=== PATIENT | female | born 1970 | race Caucasian/White ===

== ENCOUNTER 2016-12-23 22:47 | Inpatient (IN) ==
[2016-12-23] MEDS ORDERED: Nitroglycerin 0.4 MG TAB.SUBL SL ONE (23:22)
--- NOTE | 2016-12-23 23:23 | Emergency Department Note ---
Disposition Clinical Impression: Unstable angina, Anterior ST segment depression, Hypokalemia, Renal insufficiency Disposition: Admitted As Inpatient Condition: Fair Time of Disposition: 00:53 Chest Pain HPI - General Chief Complaint: ED Chest Pain Stated Complaint: Chest pain// stents before Time Seen by Provider: 12/23/16 23:05 Source: patient Mode of arrival: ambulatory Limitations: no limitations Vital Signs Reviewed: Yes Nursing Notes Reviewed: Yes - History of Present Illness HPI Narrative: 46-year-old female history of hypertension, hyperlipidemia, pack per day smoker , CAD status post 1 RIA to proximal LAD 09/2015 presents to the ED with left scapular pain. She reports at 1999 she was laying at rest watching TV when she experience sharp sternal chest pain radiating through to her left back. Pain currently only located in the left scapula. She got diaphoretic, short of breath and nauseated. This feels exactly like her heart attack in the past which required one stent. She immediately took a baby aspirin and a total of 2 nitro without any relief. She continues to smoke. Reports taking her aspirin and Plavix as directed. Dr. Hunter's are cardiologists. Denies any recent illness, fever, recent travel, surgery or active cancer. No recent trauma. Severity scale (1-10): 10 - Related Data Home Medications Medication Instructions Recorded Confirmed Simvastatin [Zocor] 20 mg PO HS 09/21/15 12/24/16 Aspirin 81 mg PO DAILY 10/12/15 12/24/16 Fenofibrate [Lofibra] 160 mg PO DAILY 10/12/15 12/24/16 Hydrochlorothiazide 25 mg PO DAILY 10/12/15 12/24/16 Lisinopril [Zestril] 20 mg PO DAILY 10/12/15 12/24/16 Metoprolol [Lopressor] 25 mg PO BID 10/12/15 12/24/16 Previous Rx's Medication Instructions Recorded Clopidogrel Bisulfate [Plavix] 75 mg PO DAILY #30 tablet 10/12/15 Famotidine [Pepcid] 20 mg PO BID #60 tablet 10/12/15 Allergies Allergy/AdvReac Type Severity Reaction Status Date / Time No Known Allergies Allergy Verified 09/21/15 15:22 All systems ED: reviewed and negative except as stated. Constitutional: Denies: fever, chills Cardiovascular: Denies: chest pain, palpitations, dyspnea on exertion Respiratory: Denies: cough, dyspnea Gastrointestinal: Reports: nausea. Denies: abdominal pain, vomiting, diarrhea Musculoskeletal: Reports: back pain Integumentary: Denies: rash, abrasion Neurological: Denies: headache Chest Pain PMH - Past Medical History Medical history: Reports: hyperlipidemia, hypertension Surgical history: Reports: no surgical history Psychiatric history: Reports: no psych history JACQUARD LACE WEAVER history: Reports: no JACQUARD LACE WEAVER history - Social History Smoking Status: Current every day smoker Alcohol use: Reports: none Drug use: Reports: none Physical Exam - General Limitations: no limitations General appearance: alert, in distress (uncomfortable) - Head Head exam: atraumatic, normocephalic, normal inspection - Eye Eye exam: Present: normal appearance, PERRL, EOMI - ENT ENT exam: normal exam, normal oropharynx, mucous membranes moist - Neck Neck exam: Present: normal inspection, full ROM, trachea midline - Chest Chest inspection: Present: normal inspection, symmetric chest wall rise. Absent : tenderness - Respiratory Respiratory exam: Present: normal lung sounds bilaterally. Absent: respiratory distress, wheezes, stridor - Cardiovascular Cardiovascular exam: Present: regular rate, normal rhythm, normal heart sounds - Expanded Cardiovascular Exam Peripheral pulses: 2+: radial (R), radial (L) - Abdominal Exam Abdominal exam: Present: soft, Non-Tender, normal bowel sounds. Absent: tenderness, distention, guarding, rebound, rigidity - Extremities Exam Extremities exam: Present: normal inspection, full ROM, normal capillary refill. Absent: tenderness, pedal edema, calf tenderness - Expanded Lower Extremity Exam Neurovascular/Tendon exam: Present: normal capillary refill. Absent: pulse deficit - Back Exam Back exam: Present: normal inspection, full ROM. Absent: tenderness - Neurological Exam Neurological exam: Present: alert, oriented X3 - Psychiatric Psychiatric exam: Present: normal affect, anxious - Skin Skin exam: Present: warm, intact, normal color, diaphoresis Course Course Narrative: 46-year-old female history of ED presents the knee with left scapular pain. This is similar to the pain she experienced prior to heart catheterization that led to a drug eluting stent placed 10/12/15. Heart catheterization revealed 80% stenosis in the proximal LAD. Patient appears very uncomfortable diaphoretic and nauseated. No chest discomfort on palpation. Heart is regular rate and rhythm. Lungs are clear to auscultation. Radial pulses are symmetrical bilaterally. EKG reveals ST depression and T-wave inversion extending to V4 from prior EKG. we had chest pain workup. She took a baby aspirin earlier this morning as she normally does as well as 1 baby aspirin prior to arrival here. She will likely need admission. Nitro for pain and Zofran for nausea. Patient is in agreement with plan. - Reevaluation(s) Reevaluation #1: Chest x-ray shows cardiomegaly and bronchitic changes. Troponin is negative. Her creatinine is elevated at 1.4. Potassium is low 3.1. Will replete with 40 mEq PO. Will give her some IV fluids. Nitro did not help with pain. Morphine ordered for discomfort. Her vitals remain stable. Will admit for rule out ACS. Her HEART score is 5. Patient is in agreement with plan. Hospitalist paged for admission. Impression is unstable angina R/O ACS with ST depression in anterior leads with hypokalemia and renal insufficiency. Time: 00:49 - Consultations Consultation #1: Spoke with on-call hospitalist fanny Lake to admit for unstable angina R/O ACS and ST depressions. No further orders at this time Time: 01:20 Vital Signs Temperature 98.2 F 12/23/16 22:52 Pulse Rate 95 12/23/16 22:52 Respiratory Rate 16 12/23/16 22:52 Blood Pressure 137/82 12/23/16 22:52 O2 Sat by Pulse Oximetry 97 12/23/16 22:52 Temperature 98.2 F 12/23/16 22:52 Pulse Rate 62 12/24/16 00:30 Respiratory Rate 16 12/24/16 00:30 Blood Pressure 113/78 12/24/16 00:30 O2 Sat by Pulse Oximetry 95 12/24/16 00:30 Oxygen Delivery Oxygen Delivery Room Air Chest Pain - Differential Diagnosis Likely: unstable angina pectoris, atypical chest pain - Medical Records Medical records reviewed: Yes I reviewed the patient's medical records. - Lab Data Lab results reviewed: Yes I reviewed the patient's lab results. Result diagrams: 12/23/16 23:30 12/23/16 23:30 Lab Results 12/23/16 12/23/16 12/23/16 Range/Units 23:30 23:30 23:30 WBC 9.8 (4.3-11.1) K/mcL RBC 4.39 (3.82-4.97) M/mcL Hgb 13.1 (11.5-15.4) g/dL Hct 37.8 (35.3-44.9) % MCV 86.1 (83.0-100.0) fL MCH 29.8 (28.0-33.3) pg MCHC 34.7 (31.6-35.5) g/dL RDW 12.2 (11.5-14.5) % Plt Count 431 H (140-400) K/mcL MPV 10.1 (9.4-12.4) fL Immature Gran % 0.8 (0-4) % Seg Neutrophils % 58.6 % Lymphocytes % 29.3 % Monocytes % 8.9 % Eosinophils % 1.5 % Basophils % 0.9 % Neutrophils # 5.7 (1.6-8.9) K/mcL Lymphocytes # 2.9 (0.6-4.6) K/mcL Monocytes # 0.9 (0.0-1.3) K/mcL Eosinophils # 0.2 (0.0-0.6) K/mcL Basophils # 0.1 (0.0-0.2) K/mcL Sodium 139 (136-145) mEq/L Potassium 3.1 L (3.5-4.5) mEq/L Chloride 103 (98-109) mEq/L Carbon Dioxide 26 (19-29) mEq/L BUN 13 (7-20) mg/dL Creatinine 1.41 H (0.57-1.11) mg/dL Est GFR ( Amer) 49 L (> 60) Est GFR (Non-Af Amer) 41 L (> 60) BUN/Creatinine Ratio 9 (6-26) Glucose 112 H (70-99) mg/dL Calculated Osmolality 289 (280-300) Calcium 10.0 (8.6-10.8) mg/dL Troponin I 0.00 (0-0.03) ng/mL - Radiology Data Radiology results reviewed: Yes I reviewed the patient's radiology results. Chest X-Ray 12/23/16 23:18 IMPRESSION: Borderline cardiomegaly and mild bronchitic changes. D/ / Carl Restrepo MD / Carl Restrepo MD Interpreting Provider: Carl Restrepo MD - EKG Data EKG attestation: Yes I reviewed and interpreted this EKG. EKG results narrative: EKG performed 2305 normal sinus rhythm 88 bpm, ST depressions and anterior septal leads with inverted T waves V1-V4, this is slightly change from prior EKG 10/12/[address] changes with T-wave inversion in V1-V2. Intervals are within normal limits NH interval 160 QRS 95 QT QTC 334 379. Heart Score - Score History: Moderately Suspicious EKG: Significant ST-Depression Age: Less than 45 Risk Factors: Equal/Greater than 3 risk factor or history of atherosclerotic disease Troponin: Less than normal limit HEART Score Total: 5 Attestation Statement - Attestation Attestation: I, James Noel MD, personally performed a history and physical exam of the patient and discussed their management with the resident. I reviewed the resident's note and agree with the documented findings, medical decision making , and plan of care. 46-year-old female presents to the emergency department with a complaint of upper substernal chest pain radiating straight through to the back which started about 8 PM this evening while watching television. Some mild shortness of breath. Also nausea and vomiting associated with the pain. Patient has a prior history of coronary artery disease with a coronary artery stent. On examination patient is a well-developed well-nourished female in no acute distress. She is alert and oriented 3. There is no cyanosis or diaphoresis. Chest is nontender to palpation. Breath sounds are clear and equal bilaterally. Heart regular rate and rhythm. Abdomen soft and nontender with normal bowel sounds. Labs reviewed. Troponin normal. EKG shows some anterior T-wave inversion and slight ST depression which is increased from previous EKG. Chest x-ray shows cardiomegaly and bronchitic changes. The hospitalist, Dr. Nix, was consulted and accepted admission of the patient.
[2016-12-23] MEDS ORDERED: Ondansetron 4 MG/2 ML VIAL IV ONE (23:30)
[2016-12-23 23:45] LABS: Basophils # 0.1 K/mcL (0.0-0.2); Basophils % 0.9 %; Eosinophils # 0.2 K/mcL (0.0-0.6); Eosinophils % 1.5 %; Hematocrit 37.8 % (35.3-44.9); Hemoglobin 13.1 g/dL (11.5-15.4); Immature Granulocytes % 0.8 % (0-4); Lymphocytes # 2.9 K/mcL (0.6-4.6); Lymphocytes % 29.3 %; Mean Corpuscular HGB Conc 34.7 g/dL (31.6-35.5); Mean Corpuscular Hemoglobin 29.8 pg (28.0-33.3); Mean Corpuscular Volume 86.1 fL (83.0-100.0); Mean Platelet Volume 10.1 fL (9.4-12.4); Monocytes # 0.9 K/mcL (0.0-1.3); Monocytes % 8.9 %; Neutrophils # 5.7 K/mcL (1.6-8.9); Platelet Count 431 K/mcL (140-400); Red Blood Count 4.39 M/mcL (3.82-4.97); Red Cell Distribution Width 12.2 % (11.5-14.5); Segmented Neutrophils % 58.6 %
[2016-12-23 23:57] LABS: Potassium 3.1 mEq/L (3.5-4.5)
[2016-12-24] MEDS ORDERED: 0.9 % Sodium Chloride 1,000 ML IVC ONE (00:29)
[2016-12-24] MEDS ORDERED: *HR* Morphine 2 MG/ML SYRINGE IVP ONE (00:42)
[2016-12-24] MEDS ORDERED: *HR* Morphine 2 MG/ML SYRINGE IV ONE (01:36)
[2016-12-24] MEDS ORDERED: *HR* Promethazine 25 MG/ML VIAL IVP PRN (02:14)
[2016-12-24] MEDS ORDERED: Naloxone 0.4 MG/ML INJ IVP PRN (02:14)
[2016-12-24] MEDS ORDERED: Heparin 25,000 UNIT/500 ML D5W 25,000 UNIT/500 ML MLS IVC SCH ×2 (02:15→02:30)
[2016-12-24] MEDS ORDERED: Nitroglycerin 0.4 MG TAB.SUBL SL PRN (02:21)
[2016-12-24] MEDS ORDERED: *HR* Heparin 5,000 UNIT/ML VIAL IVP ONE (02:28)
[2016-12-24] MEDS ORDERED: *HR* Heparin 5,000 UNIT/ML VIAL IVP PRN ×2 (02:28)
[2016-12-24] MEDS ORDERED: *HR* Heparin 5,000 UNIT/ML VIAL ONE (02:45)
[2016-12-24 03:15] LABS: Hematocrit 35.2 % (35.3-44.9); Hemoglobin 12.2 g/dL (11.5-15.4); Mean Corpuscular HGB Conc 34.7 g/dL (31.6-35.5); Mean Corpuscular Hemoglobin 30.2 pg (28.0-33.3); Mean Corpuscular Volume 87.1 fL (83.0-100.0); Mean Platelet Volume 10.5 fL (9.4-12.4); Platelet Count 359 K/mcL (140-400); Red Blood Count 4.04 M/mcL (3.82-4.97); Red Cell Distribution Width 12.3 % (11.5-14.5)
[2016-12-24 03:32] LABS: Calcium 9.6 mg/dL (8.6-10.8); Chol/HDL Ratio 5.4 (0-4.9); Potassium 3.5 mEq/L (3.5-4.5)
[2016-12-24 03:38] LABS: INR 1.1; Prothrombin Time 11.9 Seconds (9.4-12.1)
[2016-12-24 03:41] LABS: Activated Partial Thrombo Time 28.8 Seconds (26.0-36.0)
--- NOTE | 2016-12-24 03:54 | Internal Med History&Physical ---
<RobertoIsakMaryan Ann - Last Filed: 12/24/16 05:11> Date of Encounter: 12/24/16 Time of Encounter: 03:24 Assessment and Plan (1) Unstable angina Current visit: Yes Status: Acute EKG with ST depression and T wave inversion V1-V4, change from 16EKG trop 0.00 ddimer 352 will trend troponin start heparin drip UDS urine test nitroglycerine morphine phenergan supportive care (2) NATASHA (acute kidney injury) Current visit: Yes Status: Acute CR 1.41 elevated from baseline GFR 49 IVF avoid nephrotoxins recheck (3) Anterior ST segment depression Current visit: Yes Status: Acute (4) Hypokalemia Current visit: Yes Status: Acute 3.1 unable to tolerate PO K in ER will replace IV recheck (5) History of [place] (myocardial infarction) Current visit: Yes Status: Chronic (6) History of coronary artery stent placement Current visit: Yes Status: Chronic (7) History of placement of stent in LAD coronary artery Current visit: Yes Status: Chronic (8) CAD (coronary artery disease) Current visit: Yes Status: Acute Qualifiers: Coronary Disease-Associated Artery/Lesion type: [place] artery [place] vs. transplanted heart: [place] heart Associated angina: angina presence unspecified Qualified Code(s): I25.10 - Atherosclerotic heart disease of [place] coronary artery without angina pectoris (9) HTN (hypertension) Current visit: Yes Status: Acute Qualifiers: Hypertension type: essential hypertension Qualified Code(s): I10 - Essential (primary) hypertension (10) Tobacco abuse Current visit: Yes Status: Acute Internal Medicine - H&P: HPI Chief complaint: chest pain Admitted From: Home Plans for Post Hospital Care: Home History of present illness: Ms. Crowell is a 46 year old female c/o chest pain. PMHx [place],LAD stenting, HTN, HLD with c/o substernal chest pain, with radiation to the thoracic back. Pt states pain started earlier today and is a severe 8/10 pain that has been constant, without relief with nitroglycin and moderate relief with morphine. Pain is constant, not relieved with rest or worsened with activity and has been associated with nausea and vomiting. She states has been immediately vomiting nonbloody/nonbilious emesis anytime she is trying to take anything PO. She states these symptoms are the same as when she had her prior [place]. Pt states she is currently still smoking a little less then 1ppd. Pt denies headache, change in vision, hearing, SOB, cough hemoptysis, abdominal pain, numbness/tingling. Past Med Surg Social Fam HX - Past Medical History Medical history: hyperlipidemia, hypertension, myocardial infarction Psychiatric history: no psych history - Past Surgical History Surgical History: angioplasty/stent - Social History Smoking Status: Current every day smoker Packs per day: 0.5, Smokeless Tobacco Status: No Alcohol use: none Drug use: none - Family History Mother Living Status: Still Living Hx Family Cardiac Disorders: Yes (Multiple [place]'s, Cardiac Stents) Hx Family Medical Disorders: Yes (High cholestrol, HTN) Internal Medicine - H&P: Meds Simvastatin [Zocor] 20 mg PO HS 09/21/15 [History] Aspirin 81 mg PO DAILY 10/12/15 [History] Clopidogrel Bisulfate [Plavix] 75 mg PO DAILY #30 tablet 10/12/15 [Rx] Famotidine [Pepcid] 20 mg PO BID #60 tablet 10/12/15 [Rx] Fenofibrate [Lofibra] 160 mg PO DAILY 10/12/15 [History] Hydrochlorothiazide 25 mg PO DAILY 10/12/15 [History] Lisinopril [Zestril] 20 mg PO DAILY 10/12/15 [History] Metoprolol [Lopressor] 25 mg PO BID 10/12/15 [History] Allergies No Known Allergies Allergy (Verified 09/21/15 15:22) All Systems PM: A 10-system review of systems was performed and is negative for pertinent findings except as documented above in the HPI. - Constitutional Constitutional: as per HPI - EENT Eyes: as per HPI - Cardiovascular Cardiovascular ROS IM: as per HPI - Respiratory Respiratory: as per HPI - Gastrointestinal Gastrointestinal: as per HPI - Genitourinary Genitourinary: as per HPI - Musculoskeletal Musculoskeletal ROS IM: as per HPI - Integumentary Integumentary IM: as per HPI - Neurological Neurological ROS: as per HPI - Psychiatric Psychiatric: as per HPI - Endocrine Endocrine IM: as per HPI - Hematologic/Lymphatic Hematologic/Lymphatic: as per HPI - Constitutional Vitals: Temp Pulse Resp BP Pulse Ox 97.7 F 62 18 123/75 96 12/24/16 02:17 12/24/16 02:17 12/24/16 02:17 12/24/16 02:17 12/24/16 02:17 General appearance: Present: A&O X 3, no acute distress - Head Head exam: Present: atraumatic, normocephalic - Eye Eye exam: Present: EOMI, PERRL, conjuntiva pink, sclera anicteric Pupils: Present: PERRL - ENT ENT exam: Present: mucous membranes moist - Neck Neck exam general surgery: Present: supple, trachea midline. Absent: lymphadenopathy - Respiratory Respiratory exam: Present: CTAB. Absent: accessory muscle use, rales, rhonchi, wheezes - Cardiovascular Cardiovascular exam: Present: RRR, +S1, +S2. Absent: diastolic murmur, gallop, rubs, systolic murmur - GI/Abdominal GI/Abdominal exam: Present: normal bowel sounds, soft, no peritoneal signs. Absent: distended, tenderness - Extremities Exam Extremities exam: Present: warm, radial pulses palpable and symetrical. Absent : calf tenderness, cyanotic, pedal edema - Back Exam Back exam: Absent: tenderness, vertebral tenderness - Neurological Exam Neurological exam: Present: CN II-XII intact, oriented X3, no focal deficits. Absent: pronater drift, facial droop, speech deficit - Skin Skin exam: Present: diaphoretic, intact Internal Med - H&P Results - Labs CBC & Chem 7: 12/24/16 02:30 12/24/16 02:30 Labs: Short CBC 12/24/16 Range/Units 02:30 WBC 12.3 H (4.3-11.1) K/mcL Hgb 12.2 (11.5-15.4) g/dL Hct 35.2 L (35.3-44.9) % Plt Count 359 (140-400) K/mcL <Heron Nix - Last Filed: 12/24/16 06:22> Date of Encounter: 12/24/16 Internal Medicine - H&P: HPI History of present illness: Ms. Crowell is a 46 year old female All Systems PM: A 10-system review of systems was performed and is negative for pertinent findings except as documented above in the HPI. - Constitutional Vitals: Temp Pulse Resp BP Pulse Ox 97.7 F 62 18 123/75 96 12/24/16 02:17 12/24/16 02:17 12/24/16 02:17 12/24/16 02:17 12/24/16 03:15 Internal Med - H&P Results - Labs CBC & Chem 7: 12/24/16 02:30 12/24/16 02:30 - Attending Attestation I examined this patient and my medical decision-making was reviewed with the TRANSFER AND LINE UP WORKER/PA/Advanced Practice Nurse/Resident Physician. I agree with the documented findings, disposition and treatment plan as described except to the extent set forth below. Agree with Dr. Mejia. Continue with heparin drip. Cardio consult.
[2016-12-24] MEDS ORDERED: Nicotine 21 MG PATCH.TD24 TD PRN (04:19)
[2016-12-24] MEDS: 0.9 % Sodium Chloride 1,000 ML IVC SCH ×3 (05:19→20:20)
[2016-12-24] MEDS: *HR* Morphine 2 MG/ML SYRINGE IVP PRN ×3 (05:31→14:04)
[2016-12-24 05:40] LABS: Amphetamine Screen,Urine Negative ng/mL (Cutoff=1000); Barbiturate Screen,Urine Negative ng/mL (Cutoff=200); Benzodiazepines Screen,Urine Negative ng/mL (Cutoff=200); Cannabinoid Screen,Urine Negative ng/mL (Cutoff = 50); Cocaine Screen,Urine Negative ng/mL (Cutoff= 300); Opiate Screen,Urine Positive ng/mL (Cutoff=300); Phencyclidine Screen,Urine Negative ng/mL (Cutoff=25)
--- NOTE | 2016-12-24 07:58 | Internal Med Progress Note ---
<Dallas Copeland - Last Filed: 12/24/16 08:14> Date of Encounter: 12/24/16 Time of Encounter: 07:55 - Assessment and plan (1) Unstable angina Current Visit: Yes Status: Acute Assessment and plan: Patient admitted with substernal chest pressure with pain radiating to her posterior thorax. Pain scale 8/10, improved from 10/10. N/V with po meds including nitro. EKG Echocardiogram from September 2015 demonstrates LVEF of 60%, normal left ventricular size and systolic function. Evidence of mild diastolic dysfunction of the left ventricle. Normal left atrial size. Normal right ventricular size and function. Normal right atrial size. Mild pulmonic regurgitation. Estimated RVSP 15. no pulmonary hypertension - RIA placed in proximal LAD, Patient on Plavix and ASA at home and says she takes them daily without missing doses. Contributing factors: Daily smoker, CAD, previous AL, drug-eluting stent 1 year ago, obesity, hypertension CHIRAG score: 5 (26% 14 day all cause mortality) 3+ CAD risk factors, Known CAD with previous 80% stenosis, ASA use, Severe angina, EKG ST changes Plan: - On Heparin Drip - Morphine - subling. Nitro. - Protonix - NS at 100ml/hr - Cardiology consulted and is aware of patient. (2) HTN (hypertension) Current Visit: Yes Status: Acute Assessment and plan: History of hypertension, blood pressure is currently stable. Home antihypertensive medications include HCTZ 25 mg by mouth daily lisinopril 20 mg by mouth daily Lopressor 25 mg by mouth twice a day. Plan: - Blood pressure stable hold antihypertensives until after determination of intervention. Qualifiers: Hypertension type: essential hypertension Qualified Code(s): I10 - Essential (primary) hypertension (3) NATASHA (acute kidney injury) Current Visit: Yes Status: Acute Assessment and plan: Patient admitted with acute kidney injury with a creatinine of 1.41 currently on normal saline with improving renal function. Likely secondary to nausea and vomiting. Plan: - Continue IV normal saline as patient has nausea and vomiting and is nothing by mouth. (4) Hypokalemia Current Visit: Yes Status: Acute Assessment and plan: Hypokalemia likely secondary to nausea and vomiting, volume loss. Admitting potassium 3.1, current potassium 3.5 after IV potassium replacement. Plan: - Continue to monitor electrolytes. Corrected as necessary. (5) History of [place] (myocardial infarction) Current Visit: Yes Status: Chronic Assessment and plan: History of AL with drug-eluting stent placement in proximal LAD. As described above. (6) History of coronary artery stent placement Current Visit: Yes Status: Chronic Assessment and plan: History of drug-eluting stent in proximal LAD. Continue aspirin and Plavix. (7) CAD (coronary artery disease) Current Visit: Yes Status: Acute Assessment and plan: History of single vessel severe disease of 80% blockage of the proximal LAD. Previous AL. Plan: - Continue simvastatin 20 mg by mouth at bedtime - Continue ASA - Continue beta [place]. Qualifiers: Coronary Disease-Associated Artery/Lesion type: [place] artery [place] vs. transplanted heart: [place] heart Associated angina: angina presence unspecified Qualified Code(s): I25.10 - Atherosclerotic heart disease of [place] coronary artery without angina pectoris (8) Tobacco abuse Current Visit: Yes Status: Acute Assessment and plan: Current every day smoker. Patient on nicotine patch daily. (9) DVT prophylaxis Current Visit: Yes Status: Acute Assessment and plan: Currently on heparin drip. - Subjective Interval history: Ms. Crowell 46F seen and examined patient bedside this morning. She continues to have chest pain but has improved. She describes it as chest pressure substernally radiating to her back with a pain scale of 8 out of 10. She describes this pain similar to her previous heart attack one year ago. She continues to have nausea and vomiting with by mouth medications and says that her mouth is dry. Denies any fevers, chills, blurry vision, palpitations, diarrhea or constipation. She has waiting to be evaluated by cardiology this morning. Denies any further questions. - Constitutional Vitals: Temp Pulse Resp BP Pulse Ox 98.0 F 86 16 103/68 96 12/24/16 06:56 12/24/16 06:56 12/24/16 06:56 12/24/16 06:56 12/24/16 06:56 General appearance: Present: cooperative, mild distress, A&O X 3 - Head Head exam: Present: atraumatic, normocephalic - Eye Eye exam: Present: PERRL, conjuntiva pink, sclera anicteric Pupils: Present: PERRL - ENT ENT exam: Present: mucous membranes dry - Neck Neck exam general surgery: Present: supple, trachea midline - Respiratory Respiratory exam: Present: CTAB. Absent: accessory muscle use, rales, rhonchi, wheezes - Cardiovascular Cardiovascular exam: Present: RRR, +S1, +S2. Absent: diastolic murmur, gallop, rubs, systolic murmur - GI/Abdominal GI/Abdominal exam: Present: normal bowel sounds, soft, no peritoneal signs. Absent: distended, tenderness - Extremities Exam Extremities exam: Present: warm, radial pulses palpable and symetrical. Absent : calf tenderness, cyanotic, pedal edema - Neurological Exam Neurological exam: Present: alert, oriented X3, no focal deficits, strengths equal and symetr throughout. Absent: pronater drift, facial droop, speech deficit - Psychiatric Psychiatric exam: Present: normal affect, normal mood - Skin Skin exam: Present: dry, intact Internal Medicine: Result - Labs CBC & Chem 7: 12/24/16 02:30 12/24/16 02:30 - ABG Interpretation ABG results: PT/INR, D-dimer PT 11.9 Seconds (9.4-12.1) 12/24/16 03:22 Consult Discharge Plan - Plan Referrals: Mika Pickett, INDUSTRIAL PAINTER [Primary Care Provider] - <Fredrick Varma H - Last Filed: 12/24/16 10:45> Date of Encounter: 12/24/16 - Constitutional Vitals: Temp Pulse Resp BP Pulse Ox 98.0 F 86 16 103/68 96 12/24/16 06:56 12/24/16 06:56 12/24/16 06:56 12/24/16 06:56 12/24/16 09:14 Internal Medicine: Result - Labs CBC & Chem 7: 12/24/16 02:30 12/24/16 02:30 Labs: Cardiac Enzymes 12/24/16 Range/Units 09:04 Troponin I 0.00 (0-0.03) ng/mL - ABG Interpretation ABG results: PT/INR, D-dimer PT 11.9 Seconds (9.4-12.1) 12/24/16 03:22 - Attending Attestation the patient has left back pain and nausea just when she had her last AL. Cardiology recommendations appreciated I examined this patient and my medical decision-making was reviewed with the ASBESTOS COVERER/PA/Advanced Practice Nurse/Resident Physician. I agree with the documented findings, disposition and treatment plan as described except to the extent set forth below.
[2016-12-24] MEDS: Pantoprazole 40 MG VIAL IVP SCH (09:06)
[2016-12-24] MEDS ORDERED: Nitroglycerin 1 INCH/GM PACKET TP PRN (10:32)
[2016-12-24] MEDS ORDERED: Fluconazole 100 MG TABLET PO ONE (10:55)
--- NOTE | 2016-12-24 11:21 | Cardiology Consult Note ---
<Curtis Treadwell - Last Filed: 12/24/16 15:20> Date of Encounter: 12/24/16 Time of Encounter: 11:15 Assessment and Plan (1) Back pain Current Visit: Yes Status: Acute Per Cardiology: Presents with midscapular back pain. Reports similar to what she had prior to previous stent. Reports also had midsternal chest tightness, now resolved. Back pain improved from 07/03 to 3/10. ECG with baseline abnormal ST changes and current ECG comparable-- reviewed with Dr. Padron. Trops - x 3. Consider noncardiac causes of back pain Qualifiers: Back pain location: thoracic back pain Chronicity: unspecified Back pain laterality: bilateral Qualified Code(s): M54.6 - Pain in thoracic spine (2) CAD (coronary artery disease) Current Visit: Yes Status: Chronic Per Cardiology: Last heart catheterization September 2015 which showed single vessel severe disease and status post drug-eluting stent to proximal LAD 80% stenosis, other arteries angiographically free of disease. Home medications have been resumed by primary service of aspirin, Plavix, statin, beta garland, GISELL inhibitor-- we' ll discontinue GISELL inhibitor for now due to NATASHA. Previous echo September 2015 showed EF 60%, mild diastolic dysfunction, mild NV. A lengthy discussion with patient and regarding further ischemic evaluation at this point agreeable for limited echo for reevaluation of EF. Pending echo results and clinical course will evaluate in the morning potential need for further ischemic evaluation, anticipate potential stress test. Agree with discontinuation of IV heparin drip. Qualifiers: Coronary Disease-Associated Artery/Lesion type: [place] artery [place] vs. transplanted heart: [place] heart Associated angina: angina presence unspecified Qualified Code(s): I25.10 - Atherosclerotic heart disease of [place] coronary artery without angina pectoris (3) NATASHA (acute kidney injury) Current Visit: Yes Status: Acute Per Cardiology: Present with acute kidney injury. Again will hold GISELL inhibitor for now. Continue to monitor closely. Further evaluation per primary service. (4) Tobacco abuse Current Visit: Yes Status: Chronic Per Cardiology: Unfortunately continues to smoke one pack per day. Smoking cessation discussed for 5 minutes. Discussion w patient/family: The assessment and plan as outlined above was discussed with the patient and/or family members who expressed understanding and agreement. All questions were answered. Thank you for involving us in the care of your patient. Please call with any questions. History of Present Illness Consult date: 12/24/16 Requesting physician: Fredrick Varma Consult reason: CAD, Concerns for anginma equivalent Chief complaint: Back Pain History of present illness: Ms. Crowell is a 46 year old female with a relevant past medical history of hypertension, hyperlipidemia, nicotine abuse, and CAD. History of left heart catheterization September 2015 with drug-eluting stent placement to LAD due to abnormal ECG finding an outpatient setting. Patient unfortunately continues to smoke less than one pack per day and has been smoking about one pack per day for the past 20 years. She also reports strong family history of CAD with mom with stenting at age 38 and reports father passed weight age 57 of suspected heart attack. Cardiology consult for angina equivalent symptoms with known history of CAD. Patient reports her normal state of health up until yesterday. She denies any recent fever, chills, nausea, vomiting, diarrhea, infectious process. Denies any active bleeding or blood loss. Denies any dizziness, syncope, falls. Denies any acute trauma. She reports yesterday while at rest developed onset of mid scapular back pain she reports about a 10 out of 10 with some accompanying midsternal chest heaviness. She reports symptoms similar to about one year ago prior to suspected heart attack. She does report increased fatigue over the past few weeks. Denies any change in her shorts of breath. Reports NTG pills caused nausea and vomiting. She reports mid scapular back pain continues as currently about 3 out of 10. Has not subsided since yesterday. Currently denies any chest pressure or heaviness. She denies any difficulty with urination, burning, discoloration, or foul odor. Denies any radiation of pain to her arm or neck or jaw region. Denies any diaphoresis or palpitations with these symptoms. Reports compliance with medications. Past Med Surg Social Fam HX - Past Medical History Attestation: Yes The following information was validated with the patient. Source: patient, old records reviewed, obtained from family Medical history: hyperlipidemia, hypertension, myocardial infarction Psychiatric history: no psych history - Past Surgical History Surgical History: angioplasty/stent - Social History Smoking Status: Current every day smoker Packs per day: 0.5, Smokeless Tobacco Status: No Alcohol use: none Drug use: none - Family History Mother Living Status: Still Living Hx Family Cardiac Disorders: Yes (Multiple UT's, Cardiac Stents) Hx Family Medical Disorders: Yes (High cholestrol, HTN) Medications and Allergies Simvastatin [Zocor] 20 mg PO HS 09/21/15 [History] Aspirin 81 mg PO DAILY 10/12/15 [History] Clopidogrel Bisulfate [Plavix] 75 mg PO DAILY #30 tablet 10/12/15 [Rx] Fenofibrate [Lofibra] 160 mg PO DAILY 10/12/15 [History] Hydrochlorothiazide 25 mg PO DAILY 10/12/15 [History] Lisinopril [Zestril] 20 mg PO DAILY 10/12/15 [History] Metoprolol [Lopressor] 25 mg PO BID 10/12/15 [History] Allergies No Known Allergies Allergy (Verified 09/21/15 15:22) All Systems Review: A 10-system review of systems was performed and is negative for pertinent findings except as documented above in the HPI. - Constitutional Constitutional: fatigue - Cardiovascular Cardiovascular: as per HPI, chest pain at rest - Musculoskeletal Musculoskeletal: back pain Physical Examination Vital Signs, Last 4 Hours Temp Pulse Resp BP Pulse Ox 12/24/16 10:59 97.9 F 68 18 102/68 96 12/24/16 09:14 96 General: Conversant, Other (C/o mid scapular back pain) HEENT: Atraumatic, Normocephaly, Mucus Membranes Moist Neck: No JVD, Normal carotid pulses Cardiac: Reg Rate and Rhythm, Normal S1 and S2, No Murmur Lungs: Normal Breath Sounds, No Wheeze, Rales, Rhonchi Neuro: Alert and responsive, No focal deficits noted Abdomen: Soft, Non-Tender Skin: No rashes noted on visualized skin Musculoskeletal: No Chest Wall Tenderness, Other (midscapular back pain, not worse with palpation) Extremities: No Edema, Normal Pulses Results 12/24/16 02:30 12/24/16 02:30 Lab Results Laboratory Tests 09/21/15 10/08/15 12/23/16 15:47 14:52 23:30 WBC INR Creatinine 1.03 1.41 H Est GFR (Non-Af Amer) 58 L 41 L Troponin I 0.01 B-Natriuretic Peptide LDL Cholesterol, Calc Serum , Qual Urine Opiates Screen 12/23/16 12/24/16 12/24/16 23:30 02:30 02:30 WBC 12.3 H INR Creatinine Est GFR (Non-Af Amer) Troponin I 0.00 0.00 B-Natriuretic Peptide LDL Cholesterol, Calc Serum , Qual Urine Opiates Screen 12/24/16 12/24/16 12/24/16 02:30 02:30 03:22 WBC INR Creatinine 1.28 H Est GFR (Non-Af Amer) 45 L Troponin I B-Natriuretic Peptide < 10 LDL Cholesterol, Calc 85 Serum , Qual Negative Urine Opiates Screen 12/24/16 12/24/16 12/24/16 03:22 05:20 09:04 WBC INR 1.1 Creatinine Est GFR (Non-Af Amer) Troponin I 0.00 B-Natriuretic Peptide LDL Cholesterol, Calc Serum , Qual Urine Opiates Screen Positive H ITS Impressions Chest X-Ray 12/23/16 23:18 IMPRESSION: Borderline cardiomegaly and mild bronchitic changes. D/ / Carl Restrepo MD / Carl Restrepo MD Interpreting Provider: Carl Restrepo MD Active Medications Heparin Sodium (Porcine) (Heparin) 4,000 unit IVP Q6HR PRN PRN Reason: SEE COMMENTS Stop: 06/25/17 02:29 Heparin Sodium (Porcine) (Heparin) 2,000 unit IVP Q6H PRN PRN Reason: SEE COMMENTS Stop: 06/25/17 02:29 Last Admin: 12/24/16 09:44 Dose: 2,000 unit Sodium Chloride (0.9 % Sodium Chloride) 1,000 mls @ 100 mls/hr IVC .Q10H ALEXANDRU Stop: 06/25/17 02:16 Last Admin: 12/24/16 05:19 Dose: 100 mls/hr Heparin Sodium/Dextrose (Heparin 25,000 Unit/500 Ml D5w) 25,000 unit in 500 mls @ 17.418 mls/hr IVC .Q24H ALEXANDRU; 12 UNIT/KG/HR PRN Reason: Protocol Stop: 06/25/17 02:31 Last Titration: 12/24/16 09:45 Dose: 14.05 unit/kg/hr, 20.4 mls/hr Potassium Chloride (Potassium Chloride 10 Meq/100ml) 10 meq in 100 mls @ 100 mls/hr IVPB Q1H ONE Stop: 12/24/16 11:44 Last Admin: 12/24/16 10:45 Dose: 100 mls/hr Morphine Sulfate (Morphine Sulfate) 2 mg IVP Q4HR PRN PRN Reason: Chest Pain Stop: 06/25/17 02:15 Last Admin: 12/24/16 09:45 Dose: 2 mg Naloxone HCl (Narcan) 0.4 mg IVP Q2MIN PRN PRN Reason: Opioid Reversal Stop: 06/25/17 02:15 Nitroglycerin (Nitroglycerin) 0.4 mg SL Q5MIN PRN PRN Reason: Chest Pain Stop: 06/25/17 02:22 Nitroglycerin (Nitroglycerin) 1 inch TP Q6HNTG PRN PRN Reason: Chest Pain Stop: 06/25/17 12:01 Pantoprazole Sodium (Protonix) 40 mg IVP DAILY ALEXANDRU Stop: 06/25/17 09:01 Last Admin: 12/24/16 09:06 Dose: 40 mg Promethazine HCl (Phenergan) 12.5 mg IVP Q6HR PRN PRN Reason: Nausea And Vomiting Stop: 06/25/17 02:15 - Imaging and Cardiology Chest Xray: report reviewed Echo: pending, report reviewed Cardiac cath: report reviewed - EKG Interpretation EKG results cardiology: personally reviewed (ECG comparable to previous ECG) Consult Discharge Plan - Plan Referrals: Mika Pickett, ELECT[employer] SECURITY TECHNICIAN [Primary Care Provider] - <Loli Padron - Last Filed: 12/24/16 16:36> Date of Encounter: 12/24/16 Assessment and Plan Discussion w patient/family: The assessment and plan as outlined above was discussed with the patient and/or family members who expressed understanding and agreement. All questions were answered. Thank you for involving us in the care of your patient. Please call with any questions. History of Present Illness History of present illness: Ms. Crowell is a 46 year old female All Systems Review: A 10-system review of systems was performed and is negative for pertinent findings except as documented above in the HPI. Physical Examination Vital Signs, Last 4 Hours Temp Pulse Resp BP Pulse Ox 12/24/16 14:42 98.0 F 69 16 128/77 97 Results 12/24/16 02:30 12/24/16 02:30 Lab Results 12/24/16 12/24/16 09:04 09:04 APTT 42.3 H Troponin I 0.00 - Attending Attestation I examined this patient and my medical decision-making was reviewed with the BAR[employer] ENDSHAKER ADJUSTER/PA/Advanced Practice Nurse/Resident Physician. I agree with the documented findings, disposition and treatment plan. Ms. Crowell presents with atypical symptoms, no new ECG changes and negative troponins. Her presentation does not represent an acute coronary syndrome. However, she is very adamant that her symptoms are similar to prior symptoms she experienced prior to her last heart cath. We recommend considering stress testing tomorrow. Her renal function has mildly declined. We would be hesitant to recommend a [facility] at this time.
[2016-12-24] MEDS ORDERED: Lisinopril 20 MG TABLET PO SCH (13:53)
[2016-12-24] MEDS: Fenofibrate 54 MG TABLET PO SCH (14:03)
[2016-12-24] MEDS: Aspirin 81 MG TAB.CHEW PO SCH (14:03)
[2016-12-24] MEDS: hydroCHLOROthiazide 25 MG TABLET PO SCH (15:13)
[2016-12-24] MEDS ORDERED: *HR* Morphine 2 MG/ML SYRINGE IVP PRN (17:55)
[2016-12-24] MEDS ORDERED: Melatonin 3 MG TABLET PO PRN (17:55)
--- NOTE | 2016-12-24 18:03 | Electrocardiograph Report ---
[place] [id number] Test Date: 2016-12-23 Pat Name: Madelyn Crowell Department: 104 Room: 3B Gender: F [place] Staff: SILVANA : 1970 Requested By: Chris Linclon Order Number: [id number] Reading MD: Loli Padron Measurements Intervals [place] Rate: 88 P: 55 UT: 160 QRS: 23 QRSD: 95 T: 44 QT: 334 QTc: 379 Interpretive Statements SINUS RHYTHM ARTIFACT IN LIMB LEADS ST-T ABNORMALITIES IN THE PRECORDIAL LEADS Electronically Signed On 12-24-2016 18:02:08 EDT by Loli Padron
[2016-12-24] MEDS: *HR* OxyCODONE/APAP 5/325 TABLET PO PRN (18:20)
[2016-12-25] MEDS: *HR* OxyCODONE/APAP 5/325 TABLET PO PRN (02:33)
[2016-12-25 04:55] LABS: Basophils % 0.2 %; Eosinophils # 0.1 K/mcL (0.0-0.6); Eosinophils % 0.6 %; Hematocrit 33.2 % (35.3-44.9); Hemoglobin 11.1 g/dL (11.5-15.4); Immature Granulocytes % 0.5 % (0-4); Lymphocytes % 15.2 %; Mean Corpuscular HGB Conc 33.4 g/dL (31.6-35.5); Mean Corpuscular Hemoglobin 29.8 pg (28.0-33.3); Mean Platelet Volume 10.1 fL (9.4-12.4); Monocytes # 1.4 K/mcL (0.0-1.3); Monocytes % 10.3 %; Neutrophils # 9.9 K/mcL (1.6-8.9); Platelet Count 305 K/mcL (140-400); Red Blood Count 3.73 M/mcL (3.82-4.97); Red Cell Distribution Width 12.8 % (11.5-14.5); Segmented Neutrophils % 73.2 %
[2016-12-25 05:11] LABS: Alanine Aminotransferase 13 Units/L (0-55); Albumin 2.7 g/dL (3.5-5.0); Albumin/Globulin Ratio 0.8 (1.1-2.2); Alkaline Phosphatase 45 Units/L (38-126); Aspartate Amino Transferase 11 Units/L (5-34); BUN/Creatinine Ratio 9 (6-26); Bilirubin,Total 0.4 mg/dL (0.2-1.2); Blood Urea Nitrogen 8 mg/dL (7-20); Calcium 8.5 mg/dL (8.6-10.8); Carbon Dioxide 20 mEq/L (19-29); Chloride 108 mEq/L (98-109); Globulin 3.3 g/dL (2.4-3.5); Glucose 132 mg/dL (70-99); Osmolality,Calculated 282 (280-300); Potassium 3.5 mEq/L (3.5-4.5); Sodium 136 mEq/L (136-145); eGFR For African Americans > 60 (> 60); eGFR For Non-African Americans > 60 (> 60)
[2016-12-25] MEDS ORDERED: hydroCHLOROthiazide 25 MG TABLET PO SCH (09:00)
[2016-12-25] MEDS ORDERED: Lisinopril 20 MG TABLET PO SCH (09:00)
[2016-12-25] MEDS ORDERED: Aspirin 81 MG TAB.CHEW PO SCH (09:00)
[2016-12-25] MEDS ORDERED: Fenofibrate 54 MG TABLET PO SCH (09:00)
--- NOTE | 2016-12-25 09:13 | ECHO - Doppler Report ---
Limited Echocardiogram Name: Madelyn Crowell Date of Study: 12/25/2016 Date: 1970 Ht: 62.0 in Medical Record#: [id number] Age: 46 Wt: 164.0 lb Gender: Female BSA: 1.76 Order #: [id number] Location: [facility] Room #: 3B36 Reading Physician: Mukesh Hunter MD, [facility] Laboratory Scientist: Chai Maier RN Ordering Physician: Curtis Treadwell CNP Primary Physician: Mika Pickett CNP Indications: R/O Myocardial Infarction Impressions: LVEF 60-65%. No segmental dysfunction. Normal LV chamber size, wall thickness and function. Left Ventricular Wall Motion: Rest Echo Findings All wall segments showed normal motion. Findings: Study Quality * Technically adequate exam. ECG Findings * Normal sinus rhythm. Left Ventricle * LVEF 60-65%. * No segmental dysfunction. * Normal LV chamber size, wall thickness and function. Right Ventricle * Normal right ventricular structure and function. Left Atrium * Normal left atrial size. Right Atrium * Normal right atrial size. History Hypertension Hypercholesteremia Years 20 Packs 1 Family History of CAD History of CAD/PTCA 10/12/2015 a Previous Echo was performed. Measurements: BP: 94/ 59 2D Normal Values RVIDd: 3.20 cm <2.7 cm IVSd: 1.00 cm 0.6 - 1.0 cm LVIDd: 4.30 cm 3.7 - 5.6 cm LVPWd: 1.00 cm 0.6 - 1.1 cm LVIDs: 2.50 cm 1.5 - 3.6 cm %FS: 41.90 cm >25 % LA volume: Updated by Mukesh Hunter MD, [facility] on 12/25/2016 9:06:49 AM electronically signed on 12/25/2016 9:07:18 AM with status of Final Wall Motion [place]: 1=Normal, 2=Hypokinesis, 3=Akinesis, 4=Dyskinesis, 5=Aneurysmal, 6=Hyperkinetic, X=Not Visualized (Blank)=Missing
[2016-12-25] MEDS: hydroCHLOROthiazide 25 MG TABLET PO SCH ×2 (09:45→09:54)
[2016-12-25] MEDS: Fenofibrate 54 MG TABLET PO SCH (09:53)
[2016-12-25] MEDS: Aspirin 81 MG TAB.CHEW PO SCH (09:53)
[2016-12-25] MEDS: Pantoprazole 40 MG VIAL IVP SCH (09:54)
--- NOTE | 2016-12-25 10:41 | Cardiology Progress Note ---
Date of Encounter: 12/25/16 Time of Encounter: 10:30 Assessment and Plan (1) Back pain Current Visit: Yes Status: Acute Per Cardiology: Presents with midscapular back pain. Reports similar to what she had prior to previous stent. Reports also had midsternal chest tightness, now resolved. Back pain improved. ECG with baseline abnormal ST changes and current ECG comparable- - reviewed with Dr. Padron. Trops - x 3. Consider noncardiac causes of back pain. Qualifiers: Back pain location: thoracic back pain Chronicity: unspecified Back pain laterality: bilateral Qualified Code(s): M54.6 - Pain in thoracic spine (2) CAD (coronary artery disease) Current Visit: Yes Status: Chronic Per Cardiology: Last heart catheterization September 2015 which showed single vessel severe disease and status post drug-eluting stent to proximal LAD 80% stenosis, other arteries angiographically free of disease. On aspirin, Plavix, statin, beta garland, and off GISELL inhibitor for now due to NATASHA. Previous echo September 2015 showed EF 60%, mild diastolic dysfunction, mild [place]. Reviewed and discussed with Dr. Leslie and her primary Manufacturing Recruiter Dr. Hunter, echo shows preserved EF 60-65 %, no segmental wall motion abnormalities. I had lengthy discussion with patient and regarding potential stress test, however at this point they are agreeable to continue to monitor and observe. Agreeable to no left heart catheterization at this juncture as well. Cardiology will sign off, follow-up as outpatient, appointment scheduled in 3-4 weeks. All questions answered. Patient verbalized understanding and agree to plan. Qualifiers: Coronary Disease-Associated Artery/Lesion type: [place] artery [place] vs. transplanted heart: [place] heart Associated angina: angina presence unspecified Qualified Code(s): I25.10 - Atherosclerotic heart disease of [place] coronary artery without angina pectoris (3) NATASHA (acute kidney injury) Current Visit: Yes Status: Acute Per Cardiology: Presented with NATASHA, now resolved. Off ACEI for now. Continue to monitor closely. Further evaluation per primary service. (4) Tobacco abuse Current Visit: Yes Status: Chronic Per Cardiology: Unfortunately continues to smoke one pack per day. Smoking cessation reinforced. Discussion w patient/family: The assessment and plan as outlined above was discussed with the patient and/or family members who expressed understanding and agreement. All questions were answered. Thank you for involving us in the care of your patient. Please call with any questions. Subjective Principal diagnosis: Back Pain Interval history: Patient denies any chest pain and reports back pain improved. Denies any short breath or palpitations. Denies any new concerns or complaints. Objective Vital Signs, Last 4 Hours Temp Pulse Resp BP Pulse Ox 12/25/16 07:24 98.9 F 74 15 94/59 94 General: Conversant, No Apparent Distress HEENT: Atraumatic, Normocephaly Cardiac: Reg Rate and Rhythm, Normal S1 and S2, No Murmur Lungs: Normal Breath Sounds, No Wheeze, Rales, Rhonchi Neuro: Alert and responsive, No focal deficits noted Extremities: No Edema Results 12/25/16 04:35 12/25/16 04:35 Lab Results - Imaging and Cardiology Echo: report reviewed (24-hour telemetry reviewed with average heart rate 73, sinus rhythm, no events noted) Consult Discharge Plan - Plan Referrals: Mika Pickett, [employer] [Primary Care Provider] -
[2016-12-25 11:26] LABS: Bilirubin,Urine Negative (Negative); Blood,Urine Moderate (Negative); Clarity,Urine Clear (Clear); Color,Urine Yellow (Yellow); Glucose,Urine (UA) Normal (Normal); Ketones,Urine Negative (Negative); Leukocyte Esterase,Urine Trace (Negative); Nitrite,Urine Negative (Negative); Protein,Urine Negative (Neg-Trace); Specific Gravity,Urine 1.012 (1.010-1.025); Urobilinogen,Urine Normal (Normal)
[2016-12-25 11:27] LABS: Bacteria,Urine None Seen per hpf (None-Few); Hyaline Casts,Urine None Seen per lpf (None-Few); Squamous Epithelial Cell,Urine Many per lpf (None-Few)
[2016-12-25] MEDS ORDERED: *HR* Morphine 2 MG/ML SYRINGE IVP PRN (13:36)
--- NOTE | 2016-12-25 13:38 | Internal Med Progress Note ---
Date of Encounter: 12/25/16 Time of Encounter: 13:36 - Assessment and plan (1) Leukocytosis Current Visit: Yes Status: Acute Assessment and plan: Likely secondary to UTI will start IV Ceftriaxone qd f/u urine and blood cultures f/u CXR to r/o any cardiopulmonary causes continue IV fluids monitor WBC Tylenol prn fever Qualifiers: Leukocytosis type: unspecified Qualified Code(s): D72.829 - Elevated white blood cell count, unspecified (2) UTI (urinary tract infection) Current Visit: Yes Status: Acute Assessment and plan: will treat for symptomatic UTI plan as listed above Qualifiers: Urinary tract infection type: site unspecified Hematuria presence: without hematuria Qualified Code(s): N39.0 - Urinary tract infection, site not specified (3) CAD (coronary artery disease) Current Visit: Yes Status: Chronic Assessment and plan: Cardiology consultation noted No further cardiac intervention recommended at this time continue aspirin, plavix, statin, BB will restart GISELL-inh once BP permits no signs of angina present at this time will continue to monitor Qualifiers: Coronary Disease-Associated Artery/Lesion type: [place] artery [place] vs. transplanted heart: [place] heart Associated angina: angina presence unspecified Qualified Code(s): I25.10 - Atherosclerotic heart disease of [place] coronary artery without angina pectoris (4) HTN (hypertension) Current Visit: Yes Status: Acute Assessment and plan: BP low but acceptable continue to hold Lisinopril at this time continue to monitor Qualifiers: Hypertension type: essential hypertension Qualified Code(s): I10 - Essential (primary) hypertension (5) Tobacco abuse Current Visit: Yes Status: Chronic Assessment and plan: Smoking cessation counseling provided patient not ready to quit at this time refused nicotine replacement therapy (6) DVT prophylaxis Current Visit: Yes Status: Acute Assessment and plan: Heparin SQ (7) Back pain Current Visit: Yes Status: Chronic Assessment and plan: Chronic continue pain control further work up as outpatient by her primary PCP Qualifiers: Back pain location: thoracic back pain Chronicity: unspecified Back pain laterality: bilateral Qualified Code(s): M54.6 - Pain in thoracic spine - Subjective Interval history: Patient seen and examined at bedside. Resting in bed and denies any chest pain or SOB at this time. Noted to have low grade fever earlier this morning with worsening leukocytosis. States she has been having difficulty urinating with dysuria for quite some time and had some productive cough yesterday. Denies any cough today but states the dysuria persists. Denies any fevers or chills at this time. Reports of being an everyday smoker. - Constitutional Vitals: Temp Pulse Resp BP Pulse Ox 98.9 F 74 16 110/71 98 12/25/16 11:32 12/25/16 11:32 12/25/16 11:32 12/25/16 11:32 12/25/16 11:32 General appearance: Present: cooperative, A&O X 3, no acute distress, obese - Head Head exam: Present: atraumatic, normocephalic - Respiratory Respiratory exam: Present: CTAB. Absent: accessory muscle use, rales, rhonchi, wheezes - Cardiovascular Cardiovascular exam: Present: RRR, +S1, +S2. Absent: diastolic murmur, gallop, rubs, systolic murmur - GI/Abdominal GI/Abdominal exam: Present: normal bowel sounds, soft, no peritoneal signs. Absent: distended, tenderness - Extremities Exam Extremities exam: Present: warm, radial pulses palpable and symetrical. Absent : calf tenderness, cyanotic, pedal edema - Neurological Exam Neurological exam: Present: alert, oriented X3 - Psychiatric Psychiatric exam: Present: normal affect, normal mood Internal Medicine: Result - Labs CBC & Chem 7: 12/25/16 04:35 12/25/16 04:35 Labs: Short CBC 12/25/16 Range/Units 04:35 WBC 13.5 H (4.3-11.1) K/mcL Hgb 11.1 L (11.5-15.4) g/dL Hct 33.2 L (35.3-44.9) % Plt Count 305 (140-400) K/mcL Neutrophils # 9.9 H (1.6-8.9) K/mcL BMP 12/25/16 04:35 Sodium 136 Potassium 3.5 Chloride 108 Carbon Dioxide 20 BUN 8 Creatinine 0.90 Glucose 132 H Calcium 8.5 L Liver Function 12/25/16 Range/Units 04:35 Total Bilirubin 0.4 (0.2-1.2) mg/dL AST 11 (5-34) Units/L ALT 13 (0-55) Units/L Alkaline Phosphatase 45 (38-126) Units/L Albumin 2.7 L (3.5-5.0) g/dL Urine 12/25/16 Range/Units 11:12 Urine Color Yellow (Yellow) Urine Clarity Clear (Clear) Urine pH 6.0 (5.0-8.0) pH Units Ur Specific [place] 1.012 (1.010-1.025) Urine Protein Negative (Neg-Trace) mg/dL Urine Glucose (UA) Normal (Normal) mg/dL - ABG Interpretation ABG results: PT/INR, D-dimer PT 11.9 Seconds (9.4-12.1) 12/24/16 03:22 Consult Discharge Plan - Plan Referrals: Mika Pickett, FROYLAN [Primary Care Provider] - 01/01/17 6:00 pm
[2016-12-25] MEDS: *HR* Heparin 5,000 UNIT/ML VIAL SQ SCH ×2 (14:27→22:27)
[2016-12-25] MEDS: 0.9 % Sodium Chloride 1,000 ML IVC SCH (14:37)
[2016-12-26 05:07] LABS: Basophils % 0.3 %; Eosinophils # 0.2 K/mcL (0.0-0.6); Eosinophils % 1.6 %; Hematocrit 31.8 % (35.3-44.9); Hemoglobin 10.6 g/dL (11.5-15.4); Immature Granulocytes % 0.6 % (0-4); Lymphocytes # 2.9 K/mcL (0.6-4.6); Mean Corpuscular HGB Conc 33.3 g/dL (31.6-35.5); Mean Corpuscular Hemoglobin 29.9 pg (28.0-33.3); Mean Corpuscular Volume 89.8 fL (83.0-100.0); Mean Platelet Volume 10.7 fL (9.4-12.4); Monocytes # 1.2 K/mcL (0.0-1.3); Neutrophils # 7.4 K/mcL (1.6-8.9); Platelet Count 293 K/mcL (140-400); Red Blood Count 3.54 M/mcL (3.82-4.97); Red Cell Distribution Width 12.6 % (11.5-14.5); Segmented Neutrophils % 62.5 %
[2016-12-26 05:23] LABS: BUN/Creatinine Ratio 8 (6-26); Blood Urea Nitrogen 7 mg/dL (7-20); Calcium 8.7 mg/dL (8.6-10.8); Carbon Dioxide 20 mEq/L (19-29); Chloride 106 mEq/L (98-109); Glucose 93 mg/dL (70-99); Magnesium 1.3 mg/dL (1.6-2.6); Osmolality,Calculated 282 (280-300); Phosphorous 2.4 mg/dL (2.3-4.7); Potassium 3.3 mEq/L (3.5-4.5); Sodium 137 mEq/L (136-145); eGFR For African Americans > 60 (> 60); eGFR For Non-African Americans > 60 (> 60)
[2016-12-26] MEDS: 0.9 % Sodium Chloride 1,000 ML IVC SCH ×3 (06:05→19:52)
[2016-12-26] MEDS: *HR* Heparin 5,000 UNIT/ML VIAL SQ SCH ×3 (06:05→20:55)
[2016-12-26] MEDS ORDERED: Magnesium Sulfate 2 GM in D5% in Water 100 ML IVPB ONE (08:14)
[2016-12-26] MEDS: hydroCHLOROthiazide 25 MG TABLET PO SCH (09:35)
[2016-12-26] MEDS: Aspirin 81 MG TAB.CHEW PO SCH (09:35)
[2016-12-26] MEDS: Fenofibrate 54 MG TABLET PO SCH (09:35)
--- NOTE | 2016-12-26 13:31 | Internal Med Progress Note ---
Date of Encounter: 12/26/16 Time of Encounter: 12:20 - Assessment and plan (1) Leukocytosis Current Visit: Yes Status: Acute Assessment and plan: Likely secondary to UTI continue IV Ceftriaxone qd f/u urine and blood cultures CXR negative for any cardiopulmonary process continue IV fluids monitor WBC Tylenol prn fever Qualifiers: Leukocytosis type: unspecified Qualified Code(s): D72.829 - Elevated white blood cell count, unspecified (2) UTI (urinary tract infection) Current Visit: Yes Status: Acute Assessment and plan: will treat for symptomatic UTI plan as listed above Qualifiers: Urinary tract infection type: site unspecified Hematuria presence: without hematuria Qualified Code(s): N39.0 - Urinary tract infection, site not specified (3) CAD (coronary artery disease) Current Visit: Yes Status: Chronic Assessment and plan: Cardiology consultation noted No further cardiac intervention recommended at this time continue aspirin, plavix, statin, BB will restart GISELL-inh once BP permits no signs of angina present at this time will continue to monitor Qualifiers: Coronary Disease-Associated Artery/Lesion type: [place] artery [place] vs. transplanted heart: [place] heart Associated angina: angina presence unspecified Qualified Code(s): I25.10 - Atherosclerotic heart disease of [place] coronary artery without angina pectoris (4) HTN (hypertension) Current Visit: Yes Status: Acute Assessment and plan: BP low but acceptable continue to hold Lisinopril at this time continue to monitor Qualifiers: Hypertension type: essential hypertension Qualified Code(s): I10 - Essential (primary) hypertension (5) Tobacco abuse Current Visit: Yes Status: Chronic Assessment and plan: Smoking cessation counseling provided patient not ready to quit at this time refused nicotine replacement therapy (6) DVT prophylaxis Current Visit: Yes Status: Acute Assessment and plan: Heparin SQ (7) Back pain Current Visit: Yes Status: Chronic Assessment and plan: Chronic continue pain control further work up as outpatient by her primary PCP Qualifiers: Back pain location: thoracic back pain Chronicity: unspecified Back pain laterality: bilateral Qualified Code(s): M54.6 - Pain in thoracic spine (8) Electrolyte abnormality Current Visit: Yes Status: Acute Assessment and plan: Hypokalemia and Hypomagnesemia K and Mg supplemented continue to monitor electrolytes and replace as needed - Subjective Interval history: Patient seen and examined at bedside. Reports of improvement in urinary symptoms but reported of being febrile overnight. Given persistent leukocytosis and fever will continue IV abx for one more day and likely d/c in am. - Constitutional Vitals: Temp Pulse Resp BP Pulse Ox 98.7 F 70 14 109/71 96 12/26/16 11:25 12/26/16 11:25 12/26/16 11:25 12/26/16 11:25 12/26/16 11:25 General appearance: Present: cooperative, A&O X 3, no acute distress, obese - Head Head exam: Present: atraumatic, normocephalic - Eye Eye exam: Present: normal appearance, conjuntiva pink, sclera anicteric - Respiratory Respiratory exam: Present: CTAB. Absent: accessory muscle use, rales, rhonchi, wheezes - Cardiovascular Cardiovascular exam: Present: RRR, +S1, +S2. Absent: diastolic murmur, gallop, rubs, systolic murmur - GI/Abdominal GI/Abdominal exam: Present: normal bowel sounds, soft, no peritoneal signs. Absent: distended, tenderness - Extremities Exam Extremities exam: Present: warm, radial pulses palpable and symetrical. Absent : calf tenderness, cyanotic, pedal edema - Neurological Exam Neurological exam: Present: alert, oriented X3 - Psychiatric Psychiatric exam: Present: normal affect, normal mood Internal Medicine: Result - Labs CBC & Chem 7: 12/26/16 04:30 12/26/16 04:30 Labs: Short CBC 12/26/16 Range/Units 04:30 WBC 11.8 H (4.3-11.1) K/mcL Hgb 10.6 L (11.5-15.4) g/dL Hct 31.8 L (35.3-44.9) % Plt Count 293 (140-400) K/mcL Neutrophils # 7.4 (1.6-8.9) K/mcL BMP 12/26/16 04:30 Sodium 137 Potassium 3.3 L Chloride 106 Carbon Dioxide 20 BUN 7 Creatinine 0.89 Glucose 93 Calcium 8.7 - ABG Interpretation ABG results: PT/INR, D-dimer PT 11.9 Seconds (9.4-12.1) 12/24/16 03:22 - Impressions Impressions Chest X-Ray 12/25/16 11:52 IMPRESSION: No acute process. D/ / Edwin Apodaca MD / Edwin Apodaca MD Interpreting Provider: Edwin Apodaca MD Consult Discharge Plan - Plan Referrals: Mika Pickett CNP [Primary Care Provider] - 01/01/17 6:00 pm Jessika Grene CNP [Partnered Physician] - 01/16/17 2:00 pm
[2016-12-27 06:05] LABS: Basophils # 0.1 K/mcL (0.0-0.2); Basophils % 0.8 %; Eosinophils # 0.3 K/mcL (0.0-0.6); Eosinophils % 3.2 %; Hematocrit 30.7 % (35.3-44.9); Hemoglobin 10.2 g/dL (11.5-15.4); Immature Granulocytes % 0.5 % (0-4); Mean Corpuscular HGB Conc 33.2 g/dL (31.6-35.5); Mean Corpuscular Hemoglobin 29.4 pg (28.0-33.3); Mean Corpuscular Volume 88.5 fL (83.0-100.0); Mean Platelet Volume 10.8 fL (9.4-12.4); Monocytes # 0.8 K/mcL (0.0-1.3); Monocytes % 9.7 %; Neutrophils # 4.2 K/mcL (1.6-8.9); Platelet Count 290 K/mcL (140-400); Red Blood Count 3.47 M/mcL (3.82-4.97); Red Cell Distribution Width 12.5 % (11.5-14.5); Segmented Neutrophils % 49.8 %
[2016-12-27] MEDS: 0.9 % Sodium Chloride 1,000 ML IVC SCH (06:18)
[2016-12-27] MEDS: *HR* Heparin 5,000 UNIT/ML VIAL SQ SCH (06:20)
[2016-12-27 06:42] LABS: BUN/Creatinine Ratio 11 (6-26); Blood Urea Nitrogen 10 mg/dL (7-20); Calcium 9.1 mg/dL (8.6-10.8); Carbon Dioxide 21 mEq/L (19-29); Chloride 108 mEq/L (98-109); Glucose 93 mg/dL (70-99); Magnesium 1.6 mg/dL (1.6-2.6); Osmolality,Calculated 287 (280-300); Phosphorous 3.1 mg/dL (2.3-4.7); Potassium 3.4 mEq/L (3.5-4.5); Sodium 139 mEq/L (136-145); eGFR For African Americans > 60 (> 60); eGFR For Non-African Americans > 60 (> 60)
[2016-12-27 07:14] VITALS: BP 113/69
--- NOTE | 2016-12-27 09:09 | Discharge Summary ---
Date of Encounter: 12/27/16 Time of Encounter: 08:30 - Discharge Diagnosis (1) Leukocytosis Priority: Secondary Status: Acute Qualifiers: Leukocytosis type: unspecified Qualified Code(s): D72.829 - Elevated white blood cell count, unspecified (2) UTI (urinary tract infection) Priority: Secondary Status: Acute Qualifiers: Urinary tract infection type: site unspecified Hematuria presence: without hematuria Qualified Code(s): N39.0 - Urinary tract infection, site not specified (3) CAD (coronary artery disease) Priority: Secondary Status: Chronic Qualifiers: Coronary Disease-Associated Artery/Lesion type: [place] artery [place] vs. transplanted heart: [place] heart Associated angina: angina presence unspecified Qualified Code(s): I25.10 - Atherosclerotic heart disease of [place] coronary artery without angina pectoris (4) HTN (hypertension) Priority: Secondary Status: Acute Qualifiers: Hypertension type: essential hypertension Qualified Code(s): I10 - Essential (primary) hypertension (5) Tobacco abuse Priority: Secondary Status: Chronic (6) DVT prophylaxis Priority: Secondary Status: Acute (7) Back pain Priority: Secondary Status: Chronic Qualifiers: Back pain location: thoracic back pain Chronicity: unspecified Back pain laterality: bilateral Qualified Code(s): M54.6 - Pain in thoracic spine (8) Electrolyte abnormality Priority: Secondary Status: Acute - Discharge Medications Prescriptions: Ciprofloxacin/Ciprofloxa HCl [Cipro Xr 1,000 mg Tablet] 1,000 mg PO DAILY #3 tbmp.24hr Lisinopril [Zestril] 2.5 mg PO DAILY #15 tablet Home Medications: Simvastatin [Zocor] 20 mg PO HS 09/21/15 [History] Aspirin 81 mg PO DAILY 10/12/15 [History] Clopidogrel Bisulfate [Plavix] 75 mg PO DAILY #30 tablet 10/12/15 [Rx] Fenofibrate [Lofibra] 160 mg PO DAILY 10/12/15 [History] Hydrochlorothiazide 25 mg PO DAILY 10/12/15 [History] Metoprolol [Lopressor] 25 mg PO BID 10/12/15 [History] Ciprofloxacin/Ciprofloxa HCl [Cipro Xr 1,000 mg Tablet] 1,000 mg PO DAILY #3 tbmp.24hr 12/27/16 [Rx] Lisinopril [Zestril] 2.5 mg PO DAILY #15 tablet 12/27/16 [Rx] Allergies/Adverse Reactions: Allergies No Known Allergies Allergy (Verified 09/21/15 15:22) Procedures/tests Complete & Pending: Procedures Performed prior 72 hours Category Date Time Status EV limited echocardiogram Routine Y 12/25/16 13:54 Completed Date of admission: 12/24/16 04:06 Primary care physician: Mika Pickett CNP Consults: 12/24/16 07:00 Consult to Cardiology [CONS] Routine Comment: Consulting Provider: Cardiology Emily Reason for Consult: cad s/p pci lad chest pain Call Completed: No Discharging clinician: Marii Brunner Anticipated date of discharge: 12/27/16 - Patient Status Disposition: Home, Self-Care Condition: Good Functional capacity at discharge: independent ambulation Overall status at discharge: patient is back to baseline - Discharge Instructions Follow Up With: Mika Pickett CNP [Primary Care Provider] - 01/01/17 6:00 pm Jessika Green CNP [Partnered Physician] - 01/16/17 2:00 pm Additional Instructions: Please follow up with your primary care physician within one week after your discharge from the hospital. Please follow up with your ward nurse within 3-4weeks after your discharge from the hospital. Your home dose of Lisinopril was placed on hold due to acute kidney injury upon your arrival to the ER. Your kidney function has returned to baseline however your blood pressure has been low due to which your home dose of Lisinopril was not restarted. Your home dose of Lisinopril has been changed to 2.5mg once a day. Please closely monitor your blood pressure at home and take this medication as prescribed. Please inform your Primary care physician about this change. Please continue Ciprofloxacin for three more doses. Please resume all your home medications as prescribed by your primary care physician. - Diet and Activity Activity: resume usual activities as tolerated Diet: advance to your usual diet Hospital course: Ms. Crowell is a 46 year old female with PMH of CAD, HTN, HLD, tobacco abuse, obesity, and chronic back pain who was admitted for evaluation of chest pain. Patient underwent cardiac work up and was negative for ACS. She was followed by cardiology and no acute intervention was recommended and an outpatient follow up was suggested. Patient's hospital course was further complicated with worsening leukocytosis and fevers. She was noted to have symptomatic UTI for which she was started on IV abx. She responded well to therapy and at this time she is hemodynamically stable for discharge. She is to follow up with PCP and cardiology after discharge. Patient demonstrates understanding of her diagnosis and agrees with the discharge plan. - Time Spent with Patient Total time spent providing and/or coordinating discharge services: Less than 30 minutes - Constitutional Vitals: Temp Pulse Resp BP Pulse Ox 98.3 F 62 16 113/69 99 12/27/16 07:13 12/27/16 07:13 12/27/16 07:13 12/27/16 07:13 12/27/16 07:13 General appearance: Present: cooperative, A&O X 3, no acute distress, obese - Head Head exam: Present: atraumatic, normocephalic - Eye Eye exam: Present: PERRL, conjuntiva pink, sclera anicteric - Respiratory Respiratory exam: Present: CTAB. Absent: accessory muscle use, rales, rhonchi, wheezes - Cardiovascular Cardiovascular exam: Present: RRR, +S1, +S2. Absent: diastolic murmur, gallop, rubs, systolic murmur - GI/Abdominal GI/Abdominal exam: Present: normal bowel sounds, soft, no peritoneal signs. Absent: distended, tenderness - Extremities Exam Extremities exam: Present: warm, radial pulses palpable and symetrical. Absent : calf tenderness, cyanotic, pedal edema - Neurological Exam Neurological exam: Present: alert, oriented X3 - Psychiatric Psychiatric exam: Present: normal affect, normal mood
[2016-12-27] MEDS: Fenofibrate 54 MG TABLET PO SCH (09:29)
[2016-12-27] MEDS: Aspirin 81 MG TAB.CHEW PO SCH (09:29)
[2016-12-27] MEDS: hydroCHLOROthiazide 25 MG TABLET PO SCH (09:30)
== END 2016-12-27 10:23 | disposition home or self-care (01) | DRG 683 ==
LOC: EMEROO 22:47 → 3BNU 22:47 → SUATTDRO 12-24 04:06
PROVIDERS: ADMIT Internal Medicine; ATTEND Internal Medicine